=== PATIENT | female | born 1970 | race African-American/Black ===

== ENCOUNTER 2017-11-20 06:34 | Emergency (ER) | payer OTHER ==
[2017-11-20] MEDS ORDERED: METOCLOPRAMIDE HCL INJECTION 10 MG/2 ML VIAL IVPUSH ONE (07:27)
[2017-11-20] MEDS ORDERED: KETOROLAC TROMETHAMINE 15 MG/ML VIAL IVPUSH ONE (07:27)
[2017-11-20] MEDS ORDERED: SODIUM CHLORIDE 1,000 ML IV STA (07:27)
[2017-11-20] MEDS ORDERED: METOCLOPRAMIDE HCL INJECTION 10 MG/2 ML VIAL ONE (07:32)
[2017-11-20] MEDS ORDERED: KETOROLAC TROMETHAMINE 15 MG/ML VIAL ONE (07:33)
--- NOTE | 2017-11-20 07:38 | PDOC ---
History of Present Illness - General Chief Complaint: Headache Stated Complaint: HEADACHE Time Seen by Provider: 11/20/17 07:14 History Source: Patient Exam Limitations: No Limitations - History of Present Illness Initial Comments: 11/20/17 07:33 Patient is a 47F with no significant medical history here today complaining of a headache that started yesterday. Patient endorses a gradual onset of pain around her entire head radiating to her neck with slow worsening until she couldn't take the pain anymore this morning. Patient states that she took tylenol this morning to no effect. Denies fevers, chills, vomiting. Denies neck stiffness. Patient states that this feels like her normal headache only worse. Denies light and sound sensitivity. Past History - Past Medical History Allergies/Adverse Reactions: Allergies Allergy/AdvReac Type Severity Reaction Status Date / Time No Known Allergies Allergy Verified 11/20/17 06:48 Home Medications: Ambulatory Orders NK [No Known Home Medication] 11/20/17 COPD: No - Suicide/Smoking/Psychosocial Hx Smoking History: Never smoked Have you smoked in the past 12 months: No Hx Alcohol Use: No Drug/Substance Use Hx: No Review of Systems - Review of Systems Comments:: 11/20/17 07:36 GENERAL/CONSTITUTIONAL: No fever or chills. No weakness. HEAD, EYES, EARS, NOSE AND THROAT: No change in vision. No sore throat. CARDIOVASCULAR: No chest pain or shortness of breath RESPIRATORY: No cough, wheezing, or hemoptysis. GASTROINTESTINAL: +nausea, no vomiting, diarrhea or constipation. GENITOURINARY: No dysuria, frequency, or change in urination. MUSCULOSKELETAL: No joint or muscle swelling or pain. No neck or back pain. SKIN: No rash NEUROLOGIC: +headache, no vertigo, loss of consciousness, or change in strength/ sensation. ENDOCRINE: No increased thirst. No abnormal weight change HEMATOLOGIC/LYMPHATIC: No anemia, easy bleeding, or history of blood clots. ALLERGIC/IMMUNOLOGIC: No hives or skin allergy. *Physical Exam - Vital Signs Last Vital Signs Temp Pulse Resp BP Pulse Ox 98.0 F 69 18 136/99 98 11/20/17 06:42 11/20/17 06:42 11/20/17 06:42 11/20/17 06:42 11/20/17 06:42 - Physical Exam Comments: 11/20/17 07:36 GENERAL: Awake, alert, and fully oriented, in no acute distress HEAD: No signs of trauma, normocephalic, atraumatic EYES: PERRLA, EOMI, sclera anicteric, conjunctiva clear ENT: Auricles normal inspection, hearing grossly normal, nares patent, oropharynx clear without exudates. Moist mucosa NECK: Normal ROM, supple, no lymphadenopathy, JVD, or masses LUNGS: No distress, speaks full sentences, clear to auscultation bilaterally HEART: Regular rate and rhythm, normal S1 and S2, no murmurs, rubs or gallops, peripheral pulses normal and equal bilaterally. ABDOMEN: Soft, nontender, normoactive bowel sounds. No guarding, no rebound. No masses EXTREMITIES: Normal inspection, Normal range of motion, no edema. No clubbing or cyanosis. NEUROLOGICAL: Cranial nerves II through XII grossly intact. Normal speech, no focal sensorimotor deficits SKIN: Warm, Dry, normal turgor, no rashes or lesions noted. ED Treatment Course - LABORATORY CBC & Chemistry Diagram: 11/20/17 07:38 11/20/17 07:38 Medical Decision Making - Medical Decision Making 11/20/17 07:37 Patient is 47F here today with headache. Vitals normal and stable. No red flags for meningitis or bleed. History very consistent with tension headache. Will treat with fluids, reglan, toradol. Will evaluate with cbc, cmp. Patient is in menopause, no concern for . 11/20/17 09:34 Labs wnl. Patient reassessed, feeling better. Will discharge home with PCP follow up. *DC/Admit/Observation/Transfer Diagnosis at time of Disposition: Headache - Discharge Dispostion Disposition: HOME Condition at time of disposition: Good Decision to Admit order: No - Referrals Referrals: Isidro Eid MD [Primary Care Provider] - - Patient Instructions Printed Discharge Instructions: DI for Hormonal and Tension Headaches Additional Instructions: Please return if you have any new, worsening or concerning symptoms. Please follow up with your primary care physician this week. - Post Discharge Activity
[2017-11-20 07:53] LABS: HEMATOCRIT 36.3 % (32.4-45.2); MCH 29.1 pg (25.7-33.7); MCHC 32.9 g/dl (32.0-36.0); MEAN CELL VOLUME 88.3 fl (80-96); MEAN PLT VOLUME 11.5 fl (7.5-11.1); PLATELET COUNT 174 K/MM3 (134-434); RBC 4.11 M/mm3 (3.60-5.2); WHITE BLOOD COUNT 5.1 K/mm3 (4.0-10.0)
[2017-11-20 07:58] VITALS: TEMP 98; BMI 28.2
[2017-11-20 08:21] LABS: ALBUMIN 3.4 g/dl (3.4-5.0); ALK PHOS 69 U/L (45-117); ANION GAP 7 MMOL/L (8-16); BILIRUBIN,TOTAL 0.6 mg/dL (0.2-1.0); BLOOD UREA NITROGEN 18 mg/dL (7-18); CALCIUM 8.7 mg/dL (8.5-10.1); CHLORIDE 106 mmol/L (98-107); CO2 28 mmol/L (21-32); CREATININE 0.9 mg/dL (0.55-1.3); GLUCOSE,RANDOM 94 mg/dL (74-106); SGOT/AST 15 U/L (15-37); SGPT/ALT 19 U/L (13-61); SODIUM 141 mmol/L (136-145); TOT PROT 6.7 g/dl (6.4-8.2)
--- NOTE | 2017-11-20 09:45 | PDOC ---
Attending Attestation - Resident Resident Name: Ray Gomes - ED Attending Attestation I have performed the following: I have examined & evaluated the patient, The case was reviewed & discussed with the resident, I agree w/resident's findings & plan, Exceptions are as noted - HPI HPI: 11/20/17 09:43 47 yo f with h/o lee, here with c/o headache. gradual onset, started yesterday. no f/c no weakness. no trauma. has had siimilar had in past usually gets every month. no nuerologist eval yet. - Physicial Exam PE: 11/20/17 09:44 awake alert lungs clear bilat heart rrr no mrg. abd soft nt nd. ext wwp. nuero 5 /5 all four ext. cn intact. - Medical Decision Making 11/20/17 09:45 headache likley migraine, differential dehydration tension, anemia. electrolyte abnormality, plan labs fluids, reglan and toradol reassess. will likely require referral to nuerology.
[2017-11-20 10:01] VITALS: BP 133/93; PULSE 60
== END 2017-11-20 10:02 | disposition home or self-care (01) ==
LOC: JER 06:34
PROC: 3E0333Z Introduction of Anti-inflammatory into Peripheral Vein, Percutaneous Approach (ICD-10-PCS; principal; 2017-11-20)
PROC: 3E033GC Introduction of Other Therapeutic Substance into Peripheral Vein, Percutaneous Approach (ICD-10-PCS; 2017-11-20)
PROC: 3E0337Z Introduction of Electrolytic and Water Balance Substance into Peripheral Vein, Percutaneous Approach (ICD-10-PCS; 2017-11-20)
DX: R51 Headache (principal)
CPT/HCPCS: 36415; 80053; 85027; 99282-25; J7030

== ENCOUNTER 2017-11-21 17:34 | Emergency (ER) | payer OTHER ==
[2017-11-21 17:44] VITALS: BP 145/85; PULSE 60; TEMP 98.8; BMI 29.2
[2017-11-21] MEDS ORDERED: KETOROLAC TROMETHAMINE 60 MG/2 ML VIAL IM ONE (18:13)
--- NOTE | 2017-11-21 18:14 | PDOC ---
History of Present Illness - General History Source: Patient Exam Limitations: No Limitations - History of Present Illness Initial Comments: 11/21/17 19:34 Pt is a 47 y/o F who presents to the ED for headache x4 days. Pt was evaluated in our ED yesterday with similar symptoms and diagnosed with a tension headache. She states the medication they gave yesterday helped a little bit. Today she states that she took 200mg of Motrin at 1pm. She states that the headache is very strong today. Admits to photophobia. Denies fever, neck pain, visual changes, weakness, numbness and tingling, nausea and vomiting. <Nichole Arellano - Last Filed: 11/21/17 19:34> <Michele Ross - Last Filed: 11/21/17 20:56> - General Chief Complaint: Headache Stated Complaint: HEADACHE Time Seen by Provider: 11/21/17 18:03 Past History - Travel Traveled outside of the country in the last 30 days: No Close contact w/someone who was outside of country & ill: No - Past Medical History COPD: No - Suicide/Smoking/Psychosocial Hx Smoking History: Never smoked Have you smoked in the past 12 months: No Hx Alcohol Use: No Drug/Substance Use Hx: No <Nichole Arellano - Last Filed: 11/21/17 19:34> <Michele Ross - Last Filed: 11/21/17 20:56> - Past Medical History Allergies/Adverse Reactions: Allergies Allergy/AdvReac Type Severity Reaction Status Date / Time No Known Allergies Allergy Verified 11/21/17 17:44 Home Medications: Ambulatory Orders Ibuprofen 800 mg PO TID #30 tablet 11/21/17 Review of Systems - Review of Systems Able to Perform ROS?: Yes Comments:: 11/21/17 19:36 CONSTITUTIONAL: Absent: fever, chills, diaphoresis, generalized weakness, malaise, loss of appetite HEENT: Absent: rhinorrhea, nasal congestion, throat pain, throat swelling, difficulty swallowing, mouth swelling, ear pain, eye pain, visual Changes CARDIOVASCULAR: Absent: chest pain, loss of consciousness, palpitations, irregular heart rate, peripheral edema RESPIRATORY: Absent: cough, shortness of breath, dyspnea with exertion, orthopnea, wheezing, stridor, hemoptysis GASTROINTESTINAL: Absent: abdominal pain, abdominal distension, nausea, vomiting, diarrhea, constipation, melena, hematochezia GENITOURINARY: Absent: dysuria, frequency, urgency, hesitancy, hematuria, flank pain, genital pain MUSCULOSKELETAL: Absent: myalgia, arthralgia, joint swelling SKIN: Absent: rash, itching, pallor HEMATOLOGIC/IMMUNOLOGIC: Absent: easy bleeding, easy bruising, lymphadenopathy, frequent infections ENDOCRINE: Absent: unexplained weight gain, unexplained weight loss, heat intolerance, cold intolerance NEUROLOGIC: Present: headache Absent:focal weakness or paresthesias, dizziness, unsteady gait, seizure, mental status changes, bladder or bowel incontinence PSYCHIATRIC: Absent: anxiety, depression, suicidal or homicidal ideation, hallucinations. Is the patient limited Welsh proficient: No <Nichole Arellano - Last Filed: 11/21/17 19:34> *Physical Exam - Vital Signs Last Vital Signs Temp Pulse Resp BP Pulse Ox 98.8 F 60 18 145/85 100 11/21/17 17:37 11/21/17 17:37 11/21/17 17:37 11/21/17 17:37 11/21/17 17:37 - Physical Exam Comments: 11/21/17 19:37 GENERAL: Well developed, well nourished. Awake and alert. No acute distress. HEENT: Normocephalic, atraumatic. PERRLA, EOMI. No conjunctival pallor. Sclera are non- icteric. Moist mucous membranes. Oropharynx is clear. NECK: Supple. Full ROM. No JVD. Carotid pulses 2+ and symmetric, without bruits. No thyromegaly. No lymphadenopathy. CARDIOVASCULAR: Regular rate and rhythm. No murmurs, rubs, or gallops. Distal pulses are 2+ and symmetric. PULMONARY: No evidence of respiratory distress. Lungs clear to auscultation bilaterally. No wheezing, rales or rhonchi. ABDOMINAL: Soft. Non-tender. Non-distended. No rebound or guarding. No organomegaly. Normoactive bowel sounds. MUSCULOSKELETAL Normal range of motion at all joints. No bony deformities or tenderness. No CVA tenderness. EXTREMITIES: No cyanosis. No clubbing. No edema. No calf tenderness. SKIN: Warm and dry. Normal capillary refill. No rashes. No jaundice. NEUROLOGICAL: Alert, awake, appropriate. Cranial nerves 2-12 intact. No deficits to light touch and temperature in face, upper extremities and lower extremities. No motor deficits in the in face, upper extremities and lower extremities. Normoreflexic in the upper and lower extremities. Normal speech. Toes are down- going bilaterally. Gait is normal without ataxia. PSYCHIATRIC: Cooperative. Good eye contact. Appropriate mood and affect. <Nichole Arellaon - Last Filed: 11/21/17 19:34> - Vital Signs Last Vital Signs Temp Pulse Resp BP Pulse Ox 98.8 F 60 18 145/85 100 11/21/17 17:37 11/21/17 17:37 11/21/17 17:37 11/21/17 17:37 11/21/17 17:37 <Michele Ross - Last Filed: 11/21/17 20:56> ED Treatment Course - ADDITIONAL ORDERS Additional order review: Laboratory Results 11/21/17 18:20 Urine HCG, Qual Negative - Medications Given in the ED: ED Medications Discontinued Medications Generic Name Dose Route Start Last Admin Trade Name Sushant PRN Reason Stop Dose Admin Ketorolac Tromethamine 60 mg 11/21/17 18:13 11/21/17 18:49 Toradol Injection - IM 11/21/17 18:14 60 mg ONCE ONE Administration <Michele Ross - Last Filed: 11/21/17 20:56> Medical Decision Making - Medical Decision Making 11/21/17 19:37 Pt is a 47 y/o F who presents to the ED for headache x4 days. Pt was evaluated in our ED yesterday with similar symptoms and diagnosed with a tension headache. -Lab results reviewed from yesterday with no obvious abnormalities -Pt is neurologically intact on exam -Head CT ordered as pt still with symptoms despite treatment yesterday -Will prescribe Motrin for pain -Neurology follow up given. -Pt is pending head CT read. Sign out given to PATRICE Ross. If head CT negative may be discharged. <Nichole Arellano - Last Filed: 11/21/17 19:34> - Medical Decision Making 11/21/17 20:56 Transfer to main ER boounce back [place] with ? mass <Michele Ross - Last Filed: 11/21/17 20:56> *DC/Admit/Observation/Transfer - Discharge Dispostion Decision to Admit order: No <[email or web address] - Last Filed: 11/21/17 19:34> - Discharge Dispostion Decision to Admit order: Yes <Michele Ross - Last Filed: 11/21/17 20:56> Diagnosis at time of Disposition: Headache Qualifiers: Headache type: unspecified Headache chronicity pattern: acute headache Intractability: not intractable Qualified Code(s): R51 - Headache - Prescriptions Prescriptions: Ibuprofen 800 mg PO TID #30 tablet - Referrals Referrals: Isidro Eid MD [Primary Care Provider] - - Patient Instructions Printed Discharge Instructions: DI for Headache Additional Instructions: You have a headache Please drink plenty of fluids and get plenty of rest Take Motrin 800mg every 8 hours for the next 3-5 days for the headache Follow up with neurology. A referral has been provided for you Return to the ED for any new or worsening symptoms - Post Discharge Activity
[2017-11-21] MEDS ORDERED: KETOROLAC TROMETHAMINE 60 MG/2 ML VIAL ONE (18:44)
--- NOTE | 2017-11-21 20:51 | PDOC ---
*Physical Exam - Vital Signs Last Vital Signs Temp Pulse Resp BP Pulse Ox 98.8 F 60 18 145/85 100 11/21/17 17:37 11/21/17 17:37 11/21/17 17:37 11/21/17 17:37 11/21/17 17:37 - Physical Exam Comments: 11/21/17 20:51 Best Contact: PCP: Dr. Isidro Eid Pmhx: n/a Pshx: n/a Allergies: NKDA FH:0 Social Hx: Cigarettes/ 0 Alcohol/ 0 Drugs/0 LMP: N/A 47-year-old female presents to the emergency department without any significant past medical history complaining of a bandlike bitemporal/frontal headache. Patient states pain started 2 days ago on a gradual onset. Patient states the pain was a global headache down to her neck. Patient was seen in the emergency department 2 days ago and discharge home after Toradol and Reglan. Patient states while in her 6 hr class earlier today, she felt 4/10 bandlike frontal/ bitemporal headache. Patient states there are no alleviating or exacerbating factors. Patient denies nausea/vomiting, fever/chills, lightheadedness, dizziness, facial pains, neck pain/stiffness, back pains, chest pain, extremity numbness or tingling sensation. Patient denies any photophobia or phonophobia. Patient states she plans to see a neurologist this week. Patient says when she came to the emergency department 2 days ago for pain was more severe than today. Patient denies this being the worse headache of her life. CONSTITUTIONAL: Absent: fever, chills, diaphoresis, generalized weakness, malaise, loss of appetite HEENT: Absent: rhinorrhea, nasal congestion, throat pain, throat swelling, difficulty swallowing, mouth swelling, ear pain, eye pain, visual Changes CARDIOVASCULAR: Absent: chest pain, loss of consciousness, palpitations, irregular heart rate, peripheral edema RESPIRATORY: Absent: cough, shortness of breath, dyspnea with exertion, orthopnea, wheezing, stridor, hemoptysis GASTROINTESTINAL: Absent: abdominal pain, abdominal distension, nausea, vomiting, diarrhea, constipation, melena, hematochezia GENITOURINARY: Absent: dysuria, frequency, urgency, hesitancy, hematuria, flank pain, genital pain MUSCULOSKELETAL: Absent: myalgia, arthralgia, joint swelling SKIN: Absent: rash, itching, pallor HEMATOLOGIC/IMMUNOLOGIC: Absent: easy bleeding, easy bruising, lymphadenopathy, frequent infections ENDOCRINE: Absent: unexplained weight gain, unexplained weight loss, heat intolerance, cold intolerance NEUROLOGIC: +Frontal /bitemporal lee Absent: focal weakness or paresthesias, dizziness, unsteady gait, seizure, mental status changes, bladder or bowel incontinence PSYCHIATRIC: Absent: anxiety, depression, suicidal or homicidal ideation, hallucinations. GENERAL: Well developed, well nourished. Awake and alert. No acute distress. HEENT: Normocephalic, atraumatic. PERRLA, EOMI. No conjunctival pallor. Sclera are non- icteric. Moist mucous membranes. Oropharynx is clear. NECK: Supple. Full ROM. No JVD. Carotid pulses 2+ and symmetric, without bruits. No thyromegaly. No lymphadenopathy. CARDIOVASCULAR: Regular rate and rhythm. No murmurs, rubs, or gallops. Distal pulses are 2+ and symmetric. PULMONARY: No evidence of respiratory distress. Lungs clear to auscultation bilaterally. No wheezing, rales or rhonchi. ABDOMINAL: Soft. Non-tender. Non-distended. No rebound or guarding. No organomegaly. Normoactive bowel sounds. MUSCULOSKELETAL Normal range of motion at all joints. No bony deformities or tenderness. No CVA tenderness. EXTREMITIES: No cyanosis. No clubbing. No edema. No calf tenderness. SKIN: Warm and dry. Normal capillary refill. No rashes. No jaundice. NEUROLOGICAL: Neg kernig/brudzinski Alert, awake, appropriate. Cranial nerves 2-12 intact. No deficits to light touch and temperature in face, upper extremities and lower extremities. No motor deficits in the in face, upper extremities and lower extremities. Normoreflexic in the upper and lower extremities. Normal speech. Toes are down- going bilaterally. Gait is normal without ataxia. PSYCHIATRIC: Cooperative. Good eye contact. Appropriate mood and affect. CAT scan head without contrast shows: Right occipital lobe there is a 5 mm hyperdensity os likely calcification and less likely blood. No mass effect seen. Comparison with prior studies or MRI may be helpful in this regard. 11/21/17 21:53 Medical decision makin-year-old female presents to the emergency department complaining of a frontal /bitemporal band like headache which subsided after normal saline, Reglan 10 mg IV piggyback. Patient states she wants to go home and follow-up with her neurologist. No signs indicating meningitis. Patient appears comfortable and states she is completely pain-free after the Reglan in the emergency department. Patient will be discharged to follow with her neurologist during the week with strict instructions to return back to the ER if symptoms recur, becomes severe/ worsening symptoms. ED Treatment Course - LABORATORY CBC & Chemistry Diagram: 11/21/17 20:54 11/21/17 20:54 - ADDITIONAL ORDERS Additional order review: Laboratory Results 11/21/17 18:20 Urine HCG, Qual Negative - Medications Given in the ED: ED Medications Discontinued Medications Generic Name Dose Route Start Last Admin Trade Name Sushant PRN Reason Stop Dose Admin Ketorolac Tromethamine 60 mg 11/21/17 18:13 11/21/17 18:49 Toradol Injection - IM 11/21/17 18:14 60 mg ONCE ONE Administration *DC/Admit/Observation/Transfer Diagnosis at time of Disposition: Headache Qualifiers: Headache type: unspecified Headache chronicity pattern: acute headache Intractability: not intractable Qualified Code(s): R51 - Headache - Discharge Dispostion Disposition: HOME - Prescriptions Prescriptions: Ibuprofen 800 mg PO TID #30 tablet - Referrals Referrals: Isidro Eid MD [Primary Care Provider] - - Patient Instructions Printed Discharge Instructions: DI for Headache Additional Instructions: You have a headache Please drink plenty of fluids and get plenty of rest Take Motrin 800mg every 8 hours for the next 3-5 days for the headache Follow up with neurology. A referral has been provided for you Return to the ED for any new or worsening symptoms - Post Discharge Activity
[2017-11-21] MEDS ORDERED: METOCLOPRAMIDE HCL INJECTION 10 MG/2 ML VIAL IVPB ONE (20:52)
[2017-11-21] MEDS ORDERED: SODIUM CHLORIDE 1,000 ML IV STA (20:52)
[2017-11-21] MEDS ORDERED: METOCLOPRAMIDE HCL INJECTION 10 MG/2 ML VIAL ONE (21:03)
[2017-11-21 21:08] LABS: BASO % 1.2 % (0-2.0); EOS % 6.1 % (0-4.5); HEMATOCRIT 40.2 % (32.4-45.2); HEMOGLOBIN 13.1 GM/dL (10.7-15.3); LYMPH % 46.6 % (8-40); MCH 28.9 pg (25.7-33.7); MCHC 32.7 g/dl (32.0-36.0); MEAN CELL VOLUME 88.3 fl (80-96); MEAN PLT VOLUME 11.3 fl (7.5-11.1); MONO % 8.1 % (3.8-10.2); PLATELET COUNT 190 K/MM3 (134-434); RBC 4.55 M/mm3 (3.60-5.2); WHITE BLOOD COUNT 4.8 K/mm3 (4.0-10.0)
[2017-11-21 21:24] LABS: ALBUMIN 3.8 g/dl (3.4-5.0); ANION GAP 8 MMOL/L (8-16); BILIRUBIN,TOTAL 0.7 mg/dL (0.2-1.0); BLOOD UREA NITROGEN 12 mg/dL (7-18); CALCIUM 9.3 mg/dL (8.5-10.1); CHLORIDE 107 mmol/L (98-107); CO2 28 mmol/L (21-32); CREATININE 0.8 mg/dL (0.55-1.3); GLUCOSE,RANDOM 85 mg/dL (74-106); POTASSIUM 4.4 mmol/L (3.5-5.1); SGOT/AST 16 U/L (15-37); SGPT/ALT 21 U/L (13-61); SODIUM 143 mmol/L (136-145); TOT PROT 7.6 g/dl (6.4-8.2)
[2017-11-21 21:25] LABS: ALK PHOS 74 U/L (45-117)
== END 2017-11-21 22:04 | disposition home or self-care (01) ==
LOC: JERFT 17:34 → JER 17:34
PROC: 3E0233Z Introduction of Anti-inflammatory into Muscle, Percutaneous Approach (ICD-10-PCS; principal; 2017-11-21)
DX: R51 Headache (principal)
CPT/HCPCS: 36415; 70450-TC; 80053; 84703; 85025; 99282-25; J7030

== ENCOUNTER 2020-06-11 04:49 | Day surgery (SDC) | payer OTHER ==
[2020-05-28 18:53] VITALS: BMI 30.7
[2020-06-11 14:21] VITALS: TEMP 98.1
[2020-06-11 15:26] VITALS: BP 138/81; PULSE 76
== END 2020-06-11 15:40 | disposition home or self-care (01) ==
LOC: JRADIR 04:49
PROVIDERS: ATTEND Urology
PROC: 0TB03ZX Excision of Right Kidney, Percutaneous Approach, Diagnostic (ICD-10-PCS; principal; 2020-06-11)
DX: D30.01 Benign neoplasm of right kidney (principal)
CPT/HCPCS: 50200; 76942-TC; 88305-TC

== ENCOUNTER 2021-08-21 19:32 | Emergency (ER) | payer OTHER ==
[2021-08-21] MEDS ORDERED: IBUPROFEN 600 MG TABLET (FP) PO ONE ×2 (19:36→19:37)
[2021-08-21 20:03] VITALS: BP 148/100; PULSE 71; TEMP 98.5; BMI 31.4
[2021-08-21] MEDS ORDERED: CEFTRIAXONE 1,000 MG in DEXTROSE 5%-WATER - 50 ML IVPB ONE (20:35)
== END 2021-08-21 20:47 | disposition home or self-care (01) ==
LOC: FER 19:32
DX: S92.901A Unspecified fracture of right foot, initial encounter for closed fracture (principal); X50.9XXA Other and unspecified overexertion or strenuous movements or postures, initial encounter
CPT/HCPCS: 73610-TC-RT-FY; 73630-TC-RT-FY; 99283-25